=== PATIENT | male | born 1980 | race Two or more races ===

== ENCOUNTER 2020-06-14 21:58 | Emergency (ER) | payer SELFPAY ==
[~2020-06-14] VITALS: Ht 172.7 cm; Wt 77.1 kg
--- NOTE | 2020-06-14 22:13 | NUR ---
[place] FOUND ON THE [address]RE[address] BY [employer] FACE DOWN ON THE STRE[address]. PT IS ARROUSABLE WITH PAIN STIMULI. NOT IN RESP DISTRESS. BROUGHT IN FOR ALTERED MENTAL STATUS. UNABLE TO MORE INFORMATION BECAUSE PT JUST GOES BACK TO SLEEPS. DENIES AND DRUG USE. ADMITS TO DRINKING TONIGHT. PT PLACED ON O2 VIA NC D/T PT NOTED WITH 02 SAT @ 92%. SATTING AT 98% AFTER PLACING ON 02. MD WAS AT THE BEDSIDE FOR EVAL. AWAITING FOR ORDERS
--- NOTE | 2020-06-14 23:54 | NUR ---
PT RESTING COMFORTABLY IN BED. VSS. NO ACUTE DISTRES NOTED. WILL CONTINUE TO MONITOR
--- NOTE | 2020-06-15 00:26 | NUR ---
Patient is resting comfortably in bed with eyes closed. Easily aroused. VSS
--- NOTE | 2020-06-15 02:12 | NUR ---
PT STATED HIS NAME. ADMITTING AWARE.
--- NOTE | 2020-06-15 02:57 | NUR ---
PT AWAKE, AMBULATED TO THE RESTROOM.
--- NOTE | 2020-06-15 04:58 | NUR ---
PT ASLEEP. VSS. NO ACUTE DISTRESS NOTED. CALL LIGHT WITHIN REACH. SITTER AT BEDSIDE FOR SAFETY. WILL CONTINUE TO MONITOR ACCORDINGLY
--- NOTE | 2020-06-15 06:03 | NUR ---
Patient discharged to home in stable condition. Written and verbal after care instructions given. Patient verbalizes understanding of instruction. Pt ambulated with steady gait. Refused to sign homeless waiver.
[2020-06-15 06:04] VITALS: BP 129/73
== END 2020-06-15 06:04 | disposition home or self-care (01) ==
LOC: ER 22:00 → EDBD 22:00 → ER 06-15 06:04
DX: F10.129 Alcohol abuse with intoxication, unspecified (principal); Y90.9 Presence of alcohol in blood, level not specified